=== PATIENT | female | born 1965 | race American Indian/Alaskan Native ===

== ENCOUNTER 2019-05-17 06:34 | Emergency (ER) | payer SELFPAY ==
[2019-05-17] MEDS ORDERED: LIDOCAINE (1%) 10 MG/1 ML VIAL 20 ML MDV INFILTRATI ONE (08:47)
[2019-05-17] MEDS ORDERED: TETANUS,DIPH,PERTUSS(ACELL) VACCINE 0.5 ML SYRINGE IM ONE (09:00)
--- NOTE | 2019-05-17 09:00 | Emergency Department Report ---
HPI - General Chief Complaint: Wound/Laceration Time Seen by Provider: 05/17/19 08:46 - HPI HPI: 53-year-old black female presents to the emergency department with a laceration to the fingertip of her left thumb that occurred earlier today while at work. 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 She has a past medical history of [id number] diabetes and hypertension. She is unsure of her last tetanus vaccination but thinks it was about 5 years ago. ED Past Medical Hx - Past Medical History Previous Medical History?: Yes Hx Hypertension: Yes Hx Diabetes: Yes - Surgical History Past Surgical History?: Yes Additional Surgical History: Partial Hysterectomy - Social History Smoking Status: Never Smoker Substance Use Type: None - Medications Home Medications: Home Medications Medication Instructions Recorded Confirmed Last Taken Type Sulfamethoxazole/Trimethoprim 1 each PO BID #10 tablet 05/17/19 Unknown Rx [Bactrim DS TAB] ED Review of Systems ROS: Stated complaint: CUT LEFT THUMB AT WORK Other details as noted in HPI Comment: All other systems reviewed and negative Constitutional: denies: chills, fever Skin: other (laceration). denies: rash Neurological: denies: numbness, paresthesias Physical Exam - Physical Exam Vital Signs: Vital Signs 05/17/19 06:43 Temperature 97.6 F Pulse Rate 72 Respiratory 18 Rate Blood Pressure 141/75 O2 Sat by Pulse 97 Oximetry Physical Exam: GENERAL: The patient is well-developed well-nourished. HEENT: Normocephalic. Atraumatic. Patient has moist mucous membranes. EYES: Extraocular motions are intact. NECK: Supple. Trachea is midline. ABDOMEN: There is no abdominal distention. SKIN: Skin is warm and dry. The patient has a skin flap laceration to the pad of the left thumb. It is oval in shape and the edges are well approximated. No current bleeding. NEURO: The patient is awake, alert, and oriented. The patient is cooperative. The patient has no focal neurologic deficits. The patient has normal speech. MUSCULOSKELETAL: Mild tenderness to palpation to the left thumb where she has a laceration. Capillary refill less than 2 seconds. There is no limitation range of motion. ED Course Vital Signs 05/17/19 06:43 Temperature 97.6 F Pulse Rate 72 Respiratory 18 Rate Blood Pressure 141/75 O2 Sat by Pulse 97 Oximetry ED Medical Decision Making - Medical Decision Making This patient presents with a oval-shaped flap laceration to the finger pad of the left thumb. It is well approximated. No current bleeding. She has good distal blood flow with capillary refill less than 2 seconds. The laceration was given Steri-Strips and Dermabond. Given the size and location of the laceration, the fact that it is a flap and is well approximated, I did not feel that the patient would benefit from suturing. After the Steri-Strips and skin adhesive were used she was given a nonadhesive dressing and a sterile dressing. The patient will be placed on antibiotics. She's been instructed to follow-up with her PCP for a skin/wound check. We discussed monitoring for infection. - Differential Diagnosis laceration, abrasion Critical Care Time: No Critical care attestation.: If time is entered above; I have spent that time in minutes in the direct care of this critically ill patient, excluding procedure time. ED Disposition Clinical Impression: Laceration of thumb Qualifiers: Encounter type: initial encounter Damage to nail status: without damage Foreign body presence: without foreign body Laterality: left Qualified Code(s): S61.012A - Laceration without foreign body of left thumb without damage to nail, initial encounter Disposition: TO HOME OR SELFCARE Is pt being admited?: No Condition: Stable Instructions: Laceration (ED), Skin Adhesive Care (ED) Additional Instructions: Please follow-up with your primary care physician in a few days for a wound check. The Steri-Strips will come off on their own, please do not pull them off. Return to the emergency department or make sure you are seen immediately with any signs or symptoms of infection such as increased pain, increased swelling, surrounding redness, development of fever or discharge of pus. Prescriptions: Sulfamethoxazole/Trimethoprim [Bactrim DS TAB] 1 each PO BID #10 tablet Referrals: PCP, Your [Other] - 2-3 Days Time of Disposition: 09:25
[2019-05-17 09:43] VITALS: BP 140/70
== END 2019-05-17 09:42 | disposition home or self-care (01) ==
LOC: ED 06:34
DX: S61.012A Laceration without foreign body of left thumb without damage to nail, initial encounter (principal); I10 Essential (primary) hypertension; E11.9 Type 2 diabetes mellitus without complications; W45.8XXA Other foreign body or object entering through skin, initial encounter; Y93.89 Activity, other specified; Y92.89 Other specified places as the place of occurrence of the external cause; Y99.8 Other external cause status
CPT/HCPCS: 90471; 90715; 99282